=== PATIENT | male | born 1985 | race Caucasian/White ===

== ENCOUNTER 2025-10-16 13:24 | Emergency (ER) | payer OTHER ==
[~2025-10-16 13:24] MED LIST: Iopamidol-370 76% 500 ML MDV (1 ML CHARGE) ONE
[2025-10-16 15:16] LABS: #Basophils 0.04 10x3/uL (0.0-0.2); #Eosinophils 0.06 10x3/uL (0.0-0.7); #Monocytes 0.39 10x3/uL (0.11-0.59); #Neutrophils 4.40 10x3/uL (1.40-6.50); %Basophils 0.6 % (0.0-1.0); %Eosinophils 1.0 % (0.0-10.0); %Lymphocytes 20.9 % (21.0-51.0); %Monocytes 6.3 % (0.0-10.0); %Neutrophils 70.9 % (42.0-75.0); Hematocrit 44.0 % (42.0-52.0); Hemoglobin 14.6 g/dL (14.0-18.0); Mean Corpuscular Hemoglobin 26.8 pg (27.0-31.0); Mean Corpuscular Volume 80.7 fL (78.0-98.0); Platelet Count 194 10x3/uL (130-400); Red Blood Cell (RBC) Count 5.45 mill/uL (4.70-6.10); White Blood Cell (WBC) Count 6.21 10x3/uL (4.8-10.8)
[2025-10-16 15:28] LABS: ALT (SGPT) 26 U/L (Less than 45); AST (SGOT) 21 U/L (11-34); Albumin 4.5 g/dL (3.1-4.5); Alkaline Phosphatase 76 U/L (40-110); Anion Gap 14 mmol/L (10-20); BUN (Urea Nitrogen) 12 mg/dL (8.9-20.6); Bilirubin, Total 0.6 mg/dL (0.3-1.2); Calc. Creatinine Clearance 0 mL/min (70-130); Calcium 9.6 mg/dL (7.8-10.44); Carbon Dioxide 26 mmol/L (22-29); Chloride 106 mmol/L (98-107); Globulin 3.5 g/dL (2.4-3.5); Glucose 94 mg/dL (70-105); Potassium 4.3 mmol/L (3.5-5.1); Sodium 142 mmol/L (136-145)
[2025-10-16] MEDS ORDERED: Fluorescein Opthalmic Strip ONE (15:38)
[2025-10-16] MEDS ORDERED: Proparacaine 0.5% Opth 15 ML BOT ONE (15:38)
== END 2025-10-16 18:01 ==
LOC: ERS 13:24 → EEVIPCON 13:24 → ERS 18:01
DX: H57.89 Other specified disorders of eye and adnexa (principal); I10 Essential (primary) hypertension; Z55.6 Problems related to health literacy; Z79.82 Long term (current) use of aspirin; Z79.899 Other long term (current) drug therapy
CPT/HCPCS: 70487; 80053; 85025